=== PATIENT | female | born 1980 | race African-American/Black ===

== ENCOUNTER 2018-06-27 08:33 | Day surgery (SDC) | payer OTHER ==
[2018-06-26 12:13] VITALS: BMI 35.6
[2018-06-27 10:14] VITALS: TEMP 97.8
[2018-06-27 14:42] VITALS: BP 128/82; PULSE 80
--- NOTE | 2018-06-28 16:11 | PATH ---
Surgical Pathology Report Patient Name: [facility]. Rec. #: [id number] /Age/Gender: 1980 (Age: 38) / F Account: [id number] Location: [facility]OSCOPY Taken: 06/27/2018 Received: 06/27/2018 Reported: 06/28/2018 Physicians: Benny Dumont D.O. Specimen(s) Received A: BX DUODENUM B: BX BODY AND ANGULARIS Clinical History HX H. pylori, indigestion, abdominal bloating Postoperative diagnosis: Gastritis Final Diagnosis A. DUODENUM, BIOPSY: DUODENUM MUCOSA WITH NO DIAGNOSTIC ABNORMALITIES. NO HISTOLOGIC EVIDENCE OF CELIAC DISEASE. B. BODY AND ANGULARIS, BIOPSY: GASTRIC MUCOSA WITH CHRONIC GASTRITIS. IMMUNOSTAIN FOR H. PYLORI IS NEGATIVE. NEGATIVE FOR INTESTINAL METAPLASIA. Electronically Signed Kristal Hassan M.D. Gross Description A. Received in formalin, labeled "duodenum BX" are 4 pierce, irregular portions of soft tissue measuring 0.1 and 0.2 cm. in greatest dimension. The specimens are submitted in toto in one cassette. B. Received in formalin, labeled "angularis and body" are 2 pierce, irregular portions of soft tissue measuring 0.2 and 0.4 cm. in greatest dimension. The specimens are submitted in toto in [one] cassette. [email or web address]/06/27/2018 ricardo/06/27/2018
== END 2018-06-27 11:15 | disposition home or self-care (01) ==
LOC: JASU-ENDO 08:33
PROVIDERS: ATTEND Internal Medicine Gastroenterology
PROC: 0DB68ZX Excision of Stomach, Via Natural or Artificial Opening Endoscopic, Diagnostic (ICD-10-PCS; principal; 2018-06-27 09:00)
DX: R10.13 Epigastric pain (principal)
CPT/HCPCS: 84703; 88305-TC; 88342-TC

== ENCOUNTER 2024-06-28 04:31 | Day surgery (SDC) | payer OTHER ==
[2024-06-27 10:47] VITALS: BMI 26.4
[2024-06-28 09:52] VITALS: RESP 20; TEMP 98.6
[2024-06-28 10:25] VITALS: PULSE 88
[2024-06-28 10:26] VITALS: BP 139/58
== END 2024-06-28 10:45 | disposition home or self-care (01) ==
LOC: JASU-ENDO 04:31
PROVIDERS: ATTEND Internal Medicine Gastroenterology
PROC: 0DBH8ZX Excision of Cecum, Via Natural or Artificial Opening Endoscopic, Diagnostic (ICD-10-PCS; principal; 2024-06-28 09:00)
DX: Z12.11 Encounter for screening for malignant neoplasm of colon (principal); D12.0 Benign neoplasm of cecum; K57.30 Diverticulosis of large intestine without perforation or abscess without bleeding; K64.8 Other hemorrhoids; K63.89 Other specified diseases of intestine
CPT/HCPCS: 81025; 88305-TC